=== PATIENT | male | born 1960 | race Caucasian/White ===

== ENCOUNTER → 2017-01-06 | Day surgery (SDC) | payer OTHER ==
[~2017-01-06] MED LIST: NO MEDICATIONS
--- NOTE | ~2017-01-06 | OR ---
Unit #: [id number] #: [id number] Patient: PRUDENCE JAFFE [id number] [address]. [address] [place], [place] [address] [id number] MR#: [id number] NAME: PRUDENCE JAFFE ROOM: Date of Procedure: 01/06/2017 Admission Date: 01/06/2017 Surgeon: Eduin Santos Jr., M.D. : 1960 Attending Physician: Eduin Santos Jr., M.D. Referring Physician: Eduin Santos Jr., M.D. 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 He also was noted to have 3 melanotic lesions of the back and one of the left forearm suspicious for cancer possibly a melanoma and it was felt these should be excised. He was brought in this time for excision of the cyst as well as the 4 different skin lesions. PREOPERATIVE DIAGNOSES Multiple skin lesions, rule out melanoma, rule out squamous cell cancer, and chronic inflamed cyst of the mid back. 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 ANESTHESIA 1% Xylocaine with epinephrine locally. PROCEDURE PERFORMED Excision of 4 skin lesions, 3 of the back and 1 of the left forearm and excision of moderately large cyst of the mid upper back. DESCRIPTION OF PROCEDURE The patient was positioned in right lateral decubitus position after being prepped and draped in routine fashion on the back area. It was locally anesthetized with 1% Xylocaine with epinephrine. An elliptical incision was made around each skin lesion with being totally excised from the surrounding tissue with a #15 blade scalpel down to the deeper subcutaneous tissue. After the lesions were removed, hemostasis was achieved with Bovie cautery. The cyst itself was elliptically excised as well with a #10 blade scalpel down to the deeper subcutaneous tissue and the fascia of the muscle. After all lesions were removed, the subcutaneous tissue in all the wounds was approximated with interrupted 3-0 Vicryl sutures. Skin edges approximated with stainless-steel skin clips and skin stapling device. The patient was then re-prepped and draped in routine fashion for removal of the fourth skin lesion, this one at the posterior left forearm. The area was locally blocked with 1% Xylocaine with epinephrine. An elliptical incision made around the lesion being totally excised from the surrounding tissue. After it was removed, it was sent to pathology. Hemostasis was achieved with Bovie cautery. The deeper tissue was approximated with interrupted 3-0 Vicryl sutures. Unit #: [id number] #: [id number] Patient: JAFFE,PRUDENCE Skin edges approximated with stainless-steel skin clips and skin stapling device. Sterile dressings were applied to all the wounds. The wounds were labeled at the upper back, left lateral, and inferior back, and cyst. The patient was discharged in satisfactory condition. Estimated blood loss minimal. No drains were used. No complications. Sponge count and instrument count were correct x3. Dictated by... Eduin Santos Jr., M.Olivia LOPEZ/lashonda TD: 01/06/2017 23:37 JOB #: [id number] OPERATIVE REPORT X Eduin Santos MD X PROCEDURE OPERATIVE NOTE
== END | disposition home or self-care (01) ==
LOC: CSUR 05:49
DX: L82.1 Other seborrheic keratosis (principal); L72.0 Epidermal cyst; L72.3 Sebaceous cyst; L57.8 Other skin changes due to chronic exposure to nonionizing radiation; Q82.8 Other specified congenital malformations of skin; L08.9 Local infection of the skin and subcutaneous tissue, unspecified; M19.90 Unspecified osteoarthritis, unspecified site; F17.210 Nicotine dependence, cigarettes, uncomplicated
CPT/HCPCS: 88304; 88305